=== PATIENT | female | born 1960 | race Native Hawaiian/Other Pacific Islander ===

== ENCOUNTER 2022-09-26 15:59 | Emergency (ER) | payer OTHER ==
[~2022-09-26] VITALS: Ht 154.9 cm; Wt 61.7 kg
[2022-09-26 16:15] VITALS: TEMP 97.2
[2022-09-26 17:00] LABS: PLATELET COUNT 213 K/uL (152-353)
[2022-09-26 17:07] LABS: POTASSIUM 3.9 mmol/L (3.6-5.2)
[2022-09-26 17:08] LABS: PARTIAL THROMBOPLASTIN TIME 30.7 SECONDS (23.9-36.7)
[2022-09-26 18:15] VITALS: BP 156/86
== END 2022-09-26 18:42 | disposition home or self-care (01) ==
LOC: ED 15:59
PROVIDERS: Family Medicine
DX: R51.9 Headache, unspecified (principal); I10 Essential (primary) hypertension
CPT/HCPCS: 80053; 80307; 81002; 82150; 83605; 83690; 83735; 84484; 85027; 85610; 85730; 86140; 93005; 96361; 96374; 96375; 99284; J1885; J2405